=== PATIENT | female | born 1990 | race Caucasian/White ===

== ENCOUNTER → 2017-09-12 | Outpatient (CLI) | payer BC ==
[2017-09-12 16:11] VITALS: BP 143/91; PULSE 70; TEMP 97.1; BMI 39.5
--- NOTE | 2017-09-12 16:40 | P.GSHP ---
History of Present Illness H&P Date: 09/12/17 Chief Complaint: lump in her right breast The patient is a 26-year-old white female who states that approximately 3 weeks ago she thought she felt something of concern in the left breast. She was seen by her physician who ordered had a bilateral mammogram and subsequently bilateral ultrasound was performed as well. Nothing was noted of concern on the left side, however there was concern of 2 spots/cyst in the right breast. The patient was told that there were 2 probable cystic areas in the right breast. Ultra sound aspiration of both lesions was recommended. Patient has no nipple discharge or changes. The patient has discomfort at the inferior lesion in the right breast. The patient thinks that she can feel both spots in the right breast. Drinks cola 1 glass/day. Patient does not smoke and is not around any one who smokes. family history: 1. paternal grandmother: colon 2. maternal aunt: thyroid 3. great grandmother maternal: breast past surgical history: none past medical history: none menache: 9 : none periods: regular, LMP 1 week ago, breast do not change with respect to periods BCP: none hormones: none social history: smoke: none alcohol: two times/week drugs: none - Constitutional Constitutional: Denies chills, Denies fever - EENT Eyes: denies decreased vision, denies pain Ears: deny: decreased hearing, earache, tinnitus Ears, nose, mouth and throat: Denies headache, Denies sore throat - Breasts Breasts: bilateral: as per HPI - Cardiovascular Cardiovascular: Denies chest pain, Denies shortness of breath - Respiratory Respiratory: Denies cough, Denies 7 - Gastrointestinal Gastrointestinal: Denies abdominal pain, Denies diarrhea, Denies nausea, Denies vomiting - Genitourinary (Female) Genitourinary: Denies dysuria, Denies hematuria - Menstruation Menstruation: Reports as per HPI - Musculoskeletal Musculoskeletal: Denies myalgias - Integumentary Integumentary: Denies pruritus, Denies rash - Neurological Neurological: Denies numbness, Denies weakness - Psychiatric Psychiatric: Denies anxiety, Denies depression - Endocrine Endocrine: Denies fatigue, Denies weight change - Hematologic/Lymphatic Comment: none - Allergic/Immunologic Comment: none Past Medical History Past Medical History: No Reported History History of Any Multi-Drug Resistant Organisms: None Reported Past Surgical History: No Surgical Hx Reported Smoking Status: Never smoker - Past Family History Father Family Medical History: Myocardial Infarction ([place]) Surgical - Exam Vital Signs Temp Pulse BP Pulse Ox 97.1 F L 70 143/91 99 09/12/17 16:09 09/12/17 16:09 09/12/17 16:09 09/12/17 16:09 - General obese - Eyes normal ocular movement, no icteric - ENT no hearing loss, no congestion - Neck no masses, trachea midline - Respiratory normal respiratory effort, clear to auscultation - Cardiovascular Rhythm: regular Heart Sounds: normal: S1, S2 - Abdomen Abdomen: soft, non tender, no guarding, no rigid, no rebound - Integumentary no rash - Neurologic no disoriented, no combative - Musculoskeletal normal gait, normal posture - Psychiatric oriented to time, oriented to person, oriented to place, speech is normal, memory intact Breast exam: right breast: multiple positional exam increased nodularity at the upper outer quadrant region, 11 o clock, and a secomd area of increased nodularity at 6 oclock right axilla: no adenopathy of concern left breast: fibrocystic changes, no dominate masses of concern left axilla: no adenopathy of concern Assessment and Plan Assessment: impression/plan: 1. 2 cystic areas of concern in the right breast with abnormal ultrasound 2. Fibrocystic changes left breast Plan: 1. Right breast cystic mass perforation of 2 lesions 2. Follow-up in 2 weeks Cc:
== END | disposition home or self-care (01) ==
LOC: WWCWWP 15:06
PROVIDERS: ATTEND Surgery
DX: N63.10 Unspecified lump in the right breast, unspecified quadrant (principal); Z80.3 Family history of malignant neoplasm of breast; Z80.0 Family history of malignant neoplasm of digestive organs

== ENCOUNTER → 2017-09-24 | Day surgery (SDC) | payer BC ==
[2017-09-24 11:46] VITALS: PULSE 78; RESP 16; TEMP 98.3; BMI 39.5
[2017-09-24 13:25] VITALS: BP 114/78
--- NOTE | 2017-09-24 14:50 | USB ---
EXAMINATION TYPE: US biopsy breast VAD RT, US biopsy breast add'l VAD RT, MG diagnostic mammo RT wo C AD DATE OF EXAM: 09/24/2017 CLINICAL HISTORY: N63 BREAST LUMP. TECHNIQUE: Ultrasound guided core biopsy of 2 sites right breast at the 6 and 11:00 positions. COMPARISON: NONE FINDINGS: The procedure of ultrasound guided core biopsy was explained to the patient. Benefits, alt ernatives, and risks were discussed. An informed consent was then obtained. The patient was placed in supine positioning for imaging and for the procedure. The overlying skin w as prepped and draped in usual sterile fashion. Lidocaine buffered with bicarbonate was used as anes thetic into the skin and subcutaneous tissue up to area of concern in the right six and 11:00 breast. Under ultrasound guidance, a 12-gauge vacuum assisted biopsy gun device was used to obtain 3 core helder ples are obtained of each site. Postprocedural mammogram demonstrates appropriate clip placement. Fol lowing this, a biopsy clip was left in lesion. The patient tolerated the procedure well without any immediate complication. The patient was kept in the radiology department for short stay after the procedure and then discharged home in stable condi tion. IMPRESSION: Successful, uncomplicated ultrasound guided core biopsy of areas of concern in the right 6 and 11:00 positions breast, full pathology results to follow.
== END | disposition home or self-care (01) ==
LOC: RADUSWWP 11:34
PROVIDERS: ATTEND Surgery
DX: D24.1 Benign neoplasm of right breast (principal)
CPT/HCPCS: 77065; 19083; 19084; A4648; J2001; 88305

== ENCOUNTER → 2017-10-04 | Outpatient (CLI) | payer BC ==
[2017-10-04 11:33] VITALS: BP 115/93; PULSE 76; BMI 39.2
--- NOTE | 2017-10-04 11:36 | P.PN ---
Subjective Progress Note Date: 10/04/17 Patient is a 26-year-old white female status post ultrasound core biopsy of 2 areas of concern in the right breast. Both areas are consistent with fibroadenoma. The patient has no concerns at this time. Lungs: Clear Heart: Regular rate and rhythm Right breast:area biopsy mild ecchymosis at 11) clock site, no echymosis at the 6 Oclock site no evidence of infection, no evidence of any hematoma Impression/plan: 1. Ultrasound core biopsy 2 areas of concern in the right breast both benign fibroadenoma 2. Repeat ultrasound and physician exam in 6 months time Cc: Dr. Salmon Objective - Vital Signs Vital signs: Vital Signs Temp Pulse 76 10/04/17 11:25 Resp BP 115/93 10/04/17 11:25 Pulse Ox 96 10/04/17 11:25 Intake & Output 10/03/17 10/04/17 10/04/17 18:59 06:59 18:59 Weight 107.048 kg
== END | disposition home or self-care (01) ==
LOC: WWCWWP 11:20
PROVIDERS: ATTEND Surgery
DX: D24.1 Benign neoplasm of right breast (principal); Z53.9 Procedure and treatment not carried out, unspecified reason